=== PATIENT | male | born 1940 | race Caucasian/White ===

== ENCOUNTER 2016-07-16 06:00 | Day surgery (SDC) | payer OTHER, MEDICAID ==
[~2016-07-16] VITALS: Ht 167.6 cm; Wt 80.7 kg
[2016-07-16] MEDS ORDERED: SIMETHICONE 40 MG/0.6 ML ML ONE (06:58)
[2016-07-16] MEDS: MIDAZOLAM HCL 5 MG/5 ML VIAL ONE ×2 (08:24→08:33)
[2016-07-16] MEDS: fentaNYL CITRATE/PF 100 MCG/2 ML AMP ONE ×2 (08:24→08:33)
[2016-07-16 10:49] VITALS: BP 110/61; PULSE 53; RESP 16
== END 2016-07-16 09:50 | disposition home or self-care (01) ==
LOC: SDS 06:00 → SMU 07:11 → SDS 09:50
PROVIDERS: ATTEND Surgery
DX: Z12.11 Encounter for screening for malignant neoplasm of colon (principal); K64.8 Other hemorrhoids; K57.30 Diverticulosis of large intestine without perforation or abscess without bleeding
CPT/HCPCS: 45378; J2250; J3010; J7030